=== PATIENT | male | born 1990 | race Caucasian/White ===

== ENCOUNTER 2022-06-19 22:11 | Emergency (ER) | payer MEDICAID ==
[~2022-06-19] VITALS: Ht 193 cm; Wt 93.5 kg
[2022-06-19 22:44] VITALS: BP 118/77
--- NOTE | 2022-06-20 01:09 | NUR ---
pt to [facility]
--- NOTE | 2022-06-20 01:29 | NUR ---
Patient discharged with v/s stable. Written and verbal after care instructions given and explained. Patient verbalized understanding. Ambulatory with steady gait. All questions addressed prior to discharge. Advised to follow up with PMD.
== END 2022-06-20 01:29 | disposition home or self-care (01) ==
LOC: MED 22:11
DX: S01.01XD Laceration without foreign body of scalp, subsequent encounter (principal); Z48.02 Encounter for removal of sutures; X58.XXXD Exposure to other specified factors, subsequent encounter
CPT/HCPCS: 99281

== ENCOUNTER 2024-03-28 17:03 | Emergency (ER) | payer MEDICAID ==
[~2024-03-28] VITALS: Ht 193 cm; Wt 104.3 kg
[2024-03-28 17:23] VITALS: BP 128/85; PULSE 114; RESP 16; TEMP 98.9; O2SAT 99
[2024-03-28] MEDS ORDERED: IBUP-2213 PO (19:29)
== END 2024-03-28 19:48 | disposition home or self-care (01) ==
LOC: MED 17:03
DX: G89.29 Other chronic pain (principal); M25.572 Pain in left ankle and joints of left foot; Z48.02 Encounter for removal of sutures; R03.0 Elevated blood-pressure reading, without diagnosis of hypertension; Z79.1 Long term (current) use of non-steroidal anti-inflammatories (NSAID); Z98.890 Other specified postprocedural states
CPT/HCPCS: 99282